=== PATIENT | female | born 1980 | race Caucasian/White ===

== ENCOUNTER 2020-09-27 07:01 | Day surgery (SDC) | payer BC ==
--- NOTE | 2020-09-26 12:01 | PCM.PREANE ---
Preanesthetic Assessment - Procedure Proposed Procedure: Screening Colonoscopy - Anesthesia/Transfusion/Family Hx Anesthesia History: Prior Anesthesia Without Reaction Family History of Anesthesia Reaction: No Transfusion History: No Prior Transfusion(s) Intubation History: Unknown - Review of Systems General: No Symptoms Pulmonary: No Symptoms (history of ETOH abuse:quit drinking ETOH 2016) Cardiovascular: No Symptoms Gastrointestinal: No Symptoms Neurological: No Symptoms (motion sickness on occaion) Other: Reports: Sinus Problem (allergic rhinitis) - Physical Assessment NPO Status Date: 09/26/20 NPO Status Time: 04:00 Vital Signs: HR: 64 Sat: 95% Temp: 97.4 Resp: 16 B/P: 116/74 Height: 1.83 m Weight: 90 kg ASA Class: 2 Mental Status: Alert & Oriented x3 Airway Class: Mallampati = 2 Dentition: Reports: Normal Dentition, Caries Thyro-Mental Finger Breadths: 3 Mouth Opening Finger Breadths: 3 ROM/Head Extension: Full Lungs: Clear to Auscultation, Normal Respiratory Effort Cardiovascular: Regular Rate, Regular Rhythm, No Murmurs - Allergies Allergies/Adverse Reactions: Allergies Allergy/AdvReac Type Severity Reaction Status Date / Time No Known Allergies Allergy Verified 09/26/20 15:18 - Anesthesia Plan Pre-Op Medication Ordered: None - Acknowledgements Anesthesia Type Planned: MAC Pt an Appropriate Candidate for the Planned Anesthesia: Yes Alternatives and Risks of Anesthesia Discussed w Pt/Guardian: Yes Pt/Guardian Understands and Agrees with Anesthesia Plan: Yes PreAnesthesia Questionnaire - HOME MEDS Home Medications: Home Meds Ascorbic Acid/Collagen Hydr [Collagen Plus Vit C] 1 cap PO DAILY 09/26/20 [History] Calcium/Magnesium/Vitamin D3 [Kevin-Mag Complex 300-150 mg Tab] 1 tab PO DAILY 09/26/20 [History] Fish Oil/[place]-3 Fatty Acids [Fish Oil 1,000 MG] 2 gm PO DAILY 09/26/20 [History] Glucosamine/D3/Boswellia Pilar [Osteo Bi-Flex Caplet] 1 tab PO DAILY 09/26/20 [History] - CURRENT (IN HOUSE) MEDS Current Meds: Current Medications Lactated Ringer's (Ringers, Lactated) 1,000 mls @ 125 mls/hr IV ASDIRECTED LISSETTE Stop: 09/27/20 23:00 Lidocaine/Sodium Bicarbonate (Lidocaine 1%/Sod Bicarbonate In Ns 8.4% 1 Ml Syringe) 0.25 ml IDERM ONETIME PRN PRN Reason: Prior to IV Start Stop: 09/27/20 18:00 Sodium Chloride (Sodium Chloride 0.9% 10 Ml Syringe) 10 ml FLUSH ASDIRECTED PRN PRN Reason: Keep Vein Open Stop: 09/27/20 18:00
[~2020-09-27 07:01] MED LIST: Lactated Ringers 1,000 ML IV SCH; Lidocaine 1% 4 ML ONE; Lidocaine 1%/Sod Bicarbonate in NS 8.4% 1 ML Syringe IDERM PRN; Midazolam 1 MG/ML 2 ML SDV ONE; Propofol 200 MG/20 ML SDV ONE; Sodium Chloride 0.9% 10 ML Syringe FLUSH PRN; fentaNYL 100 MCG/2 ML SDV ONE
[2020-09-27] MEDS ORDERED: Lactated Ringers 1,000 ML ONE (08:32)
[2020-09-27] MEDS ORDERED: Propofol 200 MG/20 ML SDV ONE (08:39)
--- NOTE | 2020-09-27 09:13 | PCM48HPAN ---
Post Anesthesia Note - EVALUATION WITHIN 48HRS OF ANESTHETIC Vital Signs in Normal Range: Yes Patient Participated in Evaluation: Yes Respiratory Function Stable: Yes Airway Patent: Yes Cardiovascular Function Stable: Yes Hydration Status Stable: Yes Pain Control Satisfactory: Yes Nausea and Vomiting Control Satisfactory: Yes Mental Status Recovered: Yes Vital Signs: Last Vital Signs Temp 36.3 C 09/27/20 07:10 Pulse 64 09/27/20 07:10 Resp 16 09/27/20 07:10 BP 116/74 09/27/20 07:10 Pulse Ox 95 09/27/20 07:10
--- NOTE | 2020-09-27 09:13 | PCM.PRNOTE ---
- Free Text/Narrative Note: Date: 09/27/2020 Procedure: initial screening colonoscopy Indication: family history of colon cancer, including father (diagnosed in his 40s) and paternal grandfather Endoscopist: Darnell Brady MD Findings: excellent prep. Appendiceal orifice visualized. Single pedunculated subcentimeter polyp identified in mid sigmoid colon, removed with hot snare. Detailed Report: Patient was taken to the endoscopy suite and placed in left lateral decubitus position. Timeout was performed and monitored anesthesia care was initiated. Visual inspection of the anus revealed no abnormality. Digital rectal exam was unremarkable. The colonoscope was inserted and advanced all the way to the cecum. The colon was redundant, navigation was somewhat challenging. Abdominal maneuvers and positioning the patient supine permitted passage of the scope to the cecum. The appendiceal orifice was visualized. Prep was excellent. The scope was slowly withdrawn and mucosal surfaces were carefully inspected. No pathology was noted until what appeared to be the mid sigmoid colon, approximately 40 cm from the anal verge. A single subcentimeter pedunculated polyp was identified and removed entirely using hot snare polypectomy technique. Although it looks like the polyp was suctioned through the colonoscope channel, the trap had some tissue fragments in it but no clear larger polyp like what was visualized. The scope was advanced proximal to the site of polypectomy and slowly withdrawn. No polyp was identified on slow withdrawal of the scope. On retroflexion in the rectum, no abnormality was noted. Air was suctioned from the distal colon and rectum prior to withdrawal of the scope. The patient tolerated the procedure well.
== END 2020-09-27 09:56 | disposition home or self-care (01) ==
LOC: JD.SDS 07:01
PROVIDERS: ATTEND Surgery
DX: Z12.11 Encounter for screening for malignant neoplasm of colon (principal); D12.5 Benign neoplasm of sigmoid colon; Z79.899 Other long term (current) drug therapy; Z98.890 Other specified postprocedural states; Z80.0 Family history of malignant neoplasm of digestive organs
CPT/HCPCS: 45385; J2250; J2704; J3010; J7120; 00812